=== PATIENT | male | born 1975 ===

== ENCOUNTER 2020-09-09 05:50 | Day surgery (SDC) | payer OTHER ==
[~2020-09-09 05:50] MED LIST: CHILDREN'S ASPI81 MG PO; CLONAZEPAM1 M1 PO; CRESTOR40 MG PO; OXYCONTIN15 MG PO; QUETIAPINE FUM400 M1 PO; SINGULAIR10 MG PO; TRAZODONE HCL150 MG PO
[2020-09-09] MEDS ORDERED: PERCOCET 5-3251 EACH PO (11:29)
== END 2020-09-09 16:20 | disposition home or self-care (01) ==
LOC: CIR.AMB 05:50
PROVIDERS: ATTEND Surgery
DX: K64.8 Other hemorrhoids (principal); K64.4 Residual hemorrhoidal skin tags; Z20.822 Contact with and (suspected) exposure to COVID-19